=== PATIENT | female | born 1960 | race Caucasian/White ===

== ENCOUNTER → 2019-08-16 | Outpatient (CLI) | payer OTHER ==
[~2019-08-16] MED LIST: ALBU90OI6 INH; AZIT250 PO; METPRE4DP PO
== END | disposition home or self-care (01) ==
LOC: PLD 07:33 → LAB SHORT 07:33
DX: L72.0 Epidermal cyst (principal)
CPT/HCPCS: 88304

== ENCOUNTER → 2024-09-16 | Outpatient (CLI) | payer OTHER ==
[2024-09-16 09:31] LABS: BASOPHILS ABSOLUTE AUTO 0.03 K/mm3 (0.00-0.23); BASOPHILS PERCENT AUTO 0 % (0-2); EOSINOPHILS ABSOLUTE AUTO 0.14 K/mm3 (0.00-0.68); EOSINOPHILS PERCENT AUTO 2 % (0-6); Hematocrit 42.4 % (33.0-51.0); Hemoglobin 14.4 g/dL (11.5-16.0); IMMATURE GRAN ABSOLUTE AUTO 0.02 K/mm3 (0.00-0.10); IMMATURE GRAN PERCENT AUTO 0 % (0-1); LYMPHOCYTES ABSOLUTE AUTO 3.08 K/mm3 (0.84-5.20); LYMPHOCYTES PERCENT AUTO 36 % (21-46); MONOCYTES ABSOLUTE AUTO 0.77 K/mm3 (0.16-1.47); MONOCYTES PERCENT AUTO 9 % (4-13); Mean Corpuscular HGB 29.6 pg (26.0-34.0); Mean Corpuscular Volume 87 fL (80-100); Mean Platelet Volume 9.5 fL (9.1-12.4); NEUTROPHILS ABSOLUTE AUTO 4.49 K/mm3 (1.96-9.15); NEUTROPHILS PERCENT AUTO 53 % (41-73); Platelet Count 307 K/mm3 (150-400); RDW Coefficient Variation 14.2 % (11.7-14.2); RDW Standard Deviation 45.5 fL (35.1-46.3); Red Blood Cell Count 4.87 M/mm3 (3.80-5.20); White Blood Cell Count 8.53 K/mm3 (4.00-11.30)
[2024-09-16 09:54] LABS: Alanine Aminotransfer (ALT/SGP 29 U/L (12-78); Albumin, Blood 3.8 g/dL (3.4-5.0); Albumin/Globulin Ratio 0.9 (0.8-1.8); Alk Phos 73 U/L (50-136); Anion Gap 8 mmol/L (3-11); Aspartate Aminotrans (AST/SGOT 11 U/L (12-37); Bilirubin, Total 0.3 mg/dL (0.1-1.0); Blood Urea Nitrogen 14 mg/dL (8-24); Bun/Creatinine Ratio 22.1 (12.0-20.0); CHOL/HDL RATIO 4.4; CO2, Blood 26 mmol/L (21-32); Calcium, Blood 9.5 mg/dL (8.5-10.1); Chloride, Blood 106 mmol/L (98-108); Cholesterol 194 mg/dL (50-200); Creatinine, Blood 0.63 mg/dL (0.40-1.00); Globulin, Blood 4.1 g/dL (2.2-4.0); Glomerular Filtration Rate 100 (60-); Glucose, Blood 136 mg/dL (70-99); HDL Cholesterol 44 mg/dL (>39); LDL/HDL RATIO 2.4; Low Density Lipoprotein Chol 108 mg/dL (0-110); Potassium, Blood 4.3 mmol/L (3.5-5.5); Sodium, Blood 136 mmol/L (136-145); Total Protein, Blood 7.9 g/dL (6.4-8.2); Triglycerides 212 mg/dL (30-160); Very Low Density Lipoprot Chol 42 mg/dL (6-32)
== END ==
LOC: LAB 07:49 → LAB SHORT 07:49
PROVIDERS: Student in an Organized Health Care Education/Training Program
DX: Z13.6 Encounter for screening for cardiovascular disorders (principal); E11.9 Type 2 diabetes mellitus without complications; F43.10 Post-traumatic stress disorder, unspecified; M79.651 Pain in right thigh
CPT/HCPCS: 80053; 80061; 83036; 85025

== ENCOUNTER 2024-10-05 19:34 | Inpatient (IN) | payer OTHER ==
[~2024-10-05] VITALS: Ht 170.2 cm; Wt 87.2 kg
[2024-10-05 20:05] LABS: BASOPHILS ABSOLUTE AUTO 0.01 K/mm3 (0.00-0.23); BASOPHILS PERCENT AUTO 0 % (0-2); EOSINOPHILS ABSOLUTE AUTO 0.01 K/mm3 (0.00-0.68); EOSINOPHILS PERCENT AUTO 0 % (0-6); Hematocrit 39.7 % (33.0-51.0); Hemoglobin 13.6 g/dL (11.5-16.0); IMMATURE GRAN ABSOLUTE AUTO 0.05 K/mm3 (0.00-0.10); IMMATURE GRAN PERCENT AUTO 1 % (0-1); LYMPHOCYTES ABSOLUTE AUTO 1.19 K/mm3 (0.84-5.20); LYMPHOCYTES PERCENT AUTO 12 % (21-46); MONOCYTES ABSOLUTE AUTO 0.84 K/mm3 (0.16-1.47); MONOCYTES PERCENT AUTO 9 % (4-13); Mean Corpuscular HGB 29.1 pg (26.0-34.0); Mean Corpuscular HGB Conc 34.3 g/dL (31.5-36.5); Mean Corpuscular Volume 85 fL (80-100); NEUTROPHILS ABSOLUTE AUTO 7.81 K/mm3 (1.96-9.15); NEUTROPHILS PERCENT AUTO 79 % (41-73); Platelet Count 261 K/mm3 (150-400); RDW Coefficient Variation 14.1 % (11.7-14.2); RDW Standard Deviation 43.4 fL (35.1-46.3); Red Blood Cell Count 4.68 M/mm3 (3.80-5.20); White Blood Cell Count 9.91 K/mm3 (4.00-11.30)
[2024-10-05] MEDS ORDERED: Ipratropium Bromide INH 0.02% 0.5 mg/2.5ML Vial INH SCH (20:25)
[2024-10-05] MEDS ORDERED: Albuterol 2.5 MG/3 ML VIAL INH SCH (20:25)
[2024-10-05 20:31] LABS: Albumin, Blood 3.8 g/dL (3.4-5.0); Albumin/Globulin Ratio 0.9 (0.8-1.8); Bilirubin, Total 0.3 mg/dL (0.1-1.0); Bun/Creatinine Ratio 23.8 (12.0-20.0); Creatinine, Blood 0.42 mg/dL (0.40-1.00); Globulin, Blood 4.3 g/dL (2.2-4.0); Total Protein, Blood 8.1 g/dL (6.4-8.2)
[2024-10-05 20:40] LABS: Influenza B, PCR NEGATIVE (NEGATIVE); Resp Syncytial Virus, PCR NEGATIVE (NEGATIVE); SARS-Cov-2 (COVID-19) PCR, MMC NEGATIVE (NEGATIVE)
[2024-10-05 20:41] LABS: Influenza A, PCR POSITIVE (NEGATIVE)
[2024-10-05 20:58] LABS: Bicarbonate Venous 27.3 mmol/L (24.0-30.0)
[2024-10-05] MEDS ORDERED: NS 1,000 ML IV SCH ×2 (21:30→22:20)
[2024-10-05] MEDS ORDERED: Oseltamivir Phosphate 75 MG Cap PO ONE (21:45)
[2024-10-05] MEDS ORDERED: MethylPREDNISolone Sod Succ 125 MG Vial IV ONE (21:45)
[2024-10-05] MEDS ORDERED: Ipratropium/Albuterol SulF 2.5-0.5MG/3 ML Amp INH SCH (22:20)
[2024-10-05] MEDS ORDERED: Albuterol 2.5 MG/3 ML VIAL INH PRN (22:20)
[2024-10-05] MEDS ORDERED: Ondansetron HCl 2 MG / ML 2ML Vial IV PRN (22:20)
[2024-10-05] MEDS ORDERED: FLU VACC TS2024-25(6MOS UP)/PF 45 MCG/0.5 ML SYRINGE IM SCH (22:20)
[2024-10-05] MEDS ORDERED: LORazepam 2 MG/ML 1ML Injection IV PRN (22:20)
[2024-10-05] MEDS ORDERED: Azithromycin 500 MG in NS 250 ML IV SCH (22:35)
[2024-10-06] VITALS (23 sets, daily range): BP systolic 118–177; BP diastolic 56–95
[2024-10-06 00:49] LABS: PCO2 Venous 52.1 mmHg (38-42); pH Blood Venous 7.31 (7.34-7.37)
[2024-10-06 00:50] LABS: Bicarbonate Venous 23.4 mmol/L (24.0-30.0)
[2024-10-06 00:51] LABS: Base Excess Venous -0.3 mmol/L
[2024-10-06 06:20] LABS: BASOPHILS PERCENT AUTO 0 % (0-2); EOSINOPHILS PERCENT AUTO 0 % (0-6); Hematocrit 35.7 % (33.0-51.0); Hemoglobin 12.1 g/dL (11.5-16.0); IMMATURE GRAN ABSOLUTE AUTO 0.05 K/mm3 (0.00-0.10); IMMATURE GRAN PERCENT AUTO 1 % (0-1); LYMPHOCYTES ABSOLUTE AUTO 0.65 K/mm3 (0.84-5.20); LYMPHOCYTES PERCENT AUTO 7 % (21-46); MONOCYTES ABSOLUTE AUTO 0.15 K/mm3 (0.16-1.47); MONOCYTES PERCENT AUTO 2 % (4-13); Mean Corpuscular HGB 29.2 pg (26.0-34.0); Mean Corpuscular HGB Conc 33.9 g/dL (31.5-36.5); Mean Corpuscular Volume 86 fL (80-100); Mean Platelet Volume 8.7 fL (9.1-12.4); NEUTROPHILS ABSOLUTE AUTO 8.56 K/mm3 (1.96-9.15); NEUTROPHILS PERCENT AUTO 91 % (41-73); Platelet Count 227 K/mm3 (150-400); RDW Standard Deviation 44.4 fL (35.1-46.3); Red Blood Cell Count 4.15 M/mm3 (3.80-5.20); White Blood Cell Count 9.41 K/mm3 (4.00-11.30)
--- NOTE | 2024-10-06 06:26 | NUR ---
SHIFT SUMMARY PATIENT TO ICU FROM ER AT APPROX 2345. PATIENT ALERT AND ORIENTED X4. SP02 78% ON 4L VIA NC WHEN TRANSFERED OVER TO THE ICU BED, PATIENT WORK OF BREATHING INCREASED WITH ANY ACTIVITY. PLACED ON BIPAP 10/5, FI02, RR 27. WHEN OFF BIPAP ON 5-6L NC PATIENT UNABLE TO TOLERATE FOR MORE THAN A COUPLE MINUTES. LS COARSE T/O. HR ST 120s, BP HYPERTENSIVE AT TIMES, SYSTOLIC CURRENTLY 150. DENIES CP/PRESSURE. USING BEDPAN. REPOSITIONS INDEPENDENTLY. HAS RASH ON ABDOMEN, DEBBIE AREA, AND BUTTOCKS. CALL LIGHT IN REACH
[2024-10-06 06:36] LABS: Albumin, Blood 3.3 g/dL (3.4-5.0); Albumin/Globulin Ratio 0.8 (0.8-1.8); Bilirubin, Total 0.2 mg/dL (0.1-1.0); Calcium, Blood 8.8 mg/dL (8.5-10.1); Creatinine, Blood 0.4 mg/dL (0.40-1.00); Magnesium, Blood 2.2 mg/dL (1.6-2.4); Potassium, Blood 3.9 mmol/L (3.5-5.5); Total Protein, Blood 7.3 g/dL (6.4-8.2)
[2024-10-06] MEDS ORDERED: Enoxaparin 40 MG/0.4 ML SYR SC SCH (09:00)
[2024-10-06] MEDS ORDERED: Oseltamivir Phosphate 75 MG Cap PO SCH (09:00)
[2024-10-06] MEDS ORDERED: Insulin Regular 100 UNIT/ML 10ML Vial SC SCH (11:30)
--- NOTE | 2024-10-06 12:30 | NUR ---
ASSUMED CARE OF PATIENT AT APPROXIMATELY 0700. REPORT RECEIVED FROM CATHY CHAPPELL AND AMBERLY CHAPPELL. PT AWAKE IN BED, INTERACTING WITH STAFF APPROPRIATELY DURING BEDSIDE REPORT. ON CONTINUOUS CARDIAC MONITORING SHOWING SR, BP STABLE. ON BIPAP WITH SETTINGS OF 10/5 AND 40%. O2 SATURATION 95%. NO ACUTE NEEDS IDENTIFED AT THIS TIME. SEE SHIFT ASSESSMENT FOR FULL DETAILS.
[2024-10-06] MEDS ORDERED: Nystatin 100,000 Unit/GM CREAM 15 GM TOP PRN (13:00)
[2024-10-06] MEDS ORDERED: Nystatin 100,000 Unit/ML Susp 5 ML UDC PO SCH (14:55)
[2024-10-06] MEDS ORDERED: MethylPREDNISolone Sod Succ 125 MG Vial IV SCH ×2 (16:00)
--- NOTE | 2024-10-06 17:58 | NUR ---
SHIFT SUMMARY PT REMAINED ALERT AND ORIENTED X 4 T/O ENTIRETY OF SHIFT. ABLE TO FOLLOW COMMANDS, MAKE PURPOSEFUL MOVEMENTS, AND MAKE NEEDS KNOWN. AFEBRILE AND DENIES PAIN. CONTINUOUS CARDIAC MONITORING SHOWED SR-ST WITH HR IN 80'S-100'S. SWITCHED TO 4LPM O2 VIA NC AT 0850, WHICH PT REMAINED ON THROUGHOUT. O2 SATURATIONS > 90%. PRODUCTIVE COUGH CONTINUES. AMBULATES TO [facility] WITH SBA FOR LINE GUIDANCE. NO BM THIS SHIFT. DENIES N/V. CLEAR LIQUID DIET FOR LUNCH, ADVANCED TO CONSISTENT CARBS PER EARLIER CONVERSATION WITH DR. HIGUERA TO ADVANCE TOLERATED. OBTAINED PHOTOS OF RASH TO LOWER BODY, NYSTATIN ORDERED PER DR. HIGUERA. NS INFUSING AT 100 mL/HR. SON GABRIELLE AT BEDSIDE EARLIER, UPDATED ON PLAN OF CARE. WILL CONTINUE TO MONITOR AND REPORT TO ONCOMING RN.
--- NOTE | 2024-10-06 21:00 | NUR ---
ASSUMPTION OF CARE PT LYING IN BED, ALERT AND ORIENTED. BIPAP ON, 06/19 35%, SATURATION 94%. SINUS RHYTHM AND TACHYCARDIC IN THE 100'S. SBP 130'S. NO CHEST PAIN OR SOB. NO AB PAIN, N/V. NS AT 100ML/HR. PT HAS CALL LIGHT.
[2024-10-07] VITALS (11 sets, daily range): BP systolic 109–173; BP diastolic 63–98
--- NOTE | 2024-10-07 00:16 | NUR ---
SHORTLY AFTER DUONEB TREATMENT, PT QTC ALARM STARTED GOING OFF FOR VALUES OF 60-70. ACCORDING TO MY MEASUREMENTS, THE VALUE REMAINS JUST BELOW 50. ALARM SETTINGS CHANGED TO UPPER LIMIT OF 70
[2024-10-07 03:56] LABS: BASOPHILS ABSOLUTE AUTO 0.01 K/mm3 (0.00-0.23); BASOPHILS PERCENT AUTO 0 % (0-2); EOSINOPHILS PERCENT AUTO 0 % (0-6); Hematocrit 35.4 % (33.0-51.0); Hemoglobin 11.8 g/dL (11.5-16.0); IMMATURE GRAN ABSOLUTE AUTO 0.05 K/mm3 (0.00-0.10); IMMATURE GRAN PERCENT AUTO 1 % (0-1); LYMPHOCYTES ABSOLUTE AUTO 1.14 K/mm3 (0.84-5.20); LYMPHOCYTES PERCENT AUTO 11 % (21-46); MONOCYTES ABSOLUTE AUTO 0.57 K/mm3 (0.16-1.47); MONOCYTES PERCENT AUTO 5 % (4-13); Mean Corpuscular HGB 28.9 pg (26.0-34.0); Mean Corpuscular HGB Conc 33.3 g/dL (31.5-36.5); Mean Corpuscular Volume 87 fL (80-100); Mean Platelet Volume 9.1 fL (9.1-12.4); NEUTROPHILS ABSOLUTE AUTO 9.03 K/mm3 (1.96-9.15); NEUTROPHILS PERCENT AUTO 84 % (41-73); Platelet Count 243 K/mm3 (150-400); RDW Coefficient Variation 14.2 % (11.7-14.2); RDW Standard Deviation 45.5 fL (35.1-46.3); Red Blood Cell Count 4.08 M/mm3 (3.80-5.20)
[2024-10-07 04:16] LABS: Bun/Creatinine Ratio 28.2 (12.0-20.0); Calcium, Blood 8.5 mg/dL (8.5-10.1); Creatinine, Blood 0.5 mg/dL (0.40-1.00); Potassium, Blood 4.2 mmol/L (3.5-5.5)
--- NOTE | 2024-10-07 07:35 | NUR ---
PT LYING IN BED IN NO APPARENT DISTRESS. PT SLEEPING BUT AWAKES TO VOICE AND IS ALERT AND ORIENTED TO ALL. PT ON BIPAP MOST OF NIGHT 10/5 35% BUT ON 6LNC AND SAT WELL DUE TO DRINKING COFFEE. NO CHEST PAIN OR SOB. ONE EPISODE OF SOB FOLLOWING C SBA JOURNEY. SINUS RHYTHM TACHY TO NORMAL. BP STABLE TO ELEVATED. NO AB PAIN. NS AT 100 ML/HR. PT GIVEN ONE 1MG DOSE OF ATIVAN FOR BIPAP RELATED ANXIETY. PT HAS CALL LIGHT. REPORT GIVEN TO ONCOMING NURSE.
[2024-10-07] MEDS ORDERED: dilTIAZem HCL 60 MG CAP.SR PO SCH (09:00)
--- NOTE | 2024-10-07 18:06 | NUR ---
SUMMARY PT A/O X4. OOB TO BSC SEVERAL TIMES TODAY. GETS SOB AND SPO2 DROPS TO 87% ON 5L NC. PT RECOVERS QUICKLY WITH REST. BELLA STARTED TODAY FOR HR, HR NOW IN THE 90'S. PRODUCTIVE COUGH WITH ABURTO SPUTUM. PT STATES SHE FEELS BETTER THAN SHE DID ON ADMIT. NO ACUTE CHANGES THIS SHIFT. USING CALL LIGHT APPROPRIATELY.
[2024-10-08] VITALS: BP 136/74
[2024-10-08 02:14] VITALS: BP 154/79
--- NOTE | 2024-10-08 02:28 | NUR ---
PT HAD NO SIGNIFICANT CHANGES THROUGHOUT SHIFT. REMAINED ON OXYGEN, EITHER NC AT 5LPM OR BIPAP WHILE SLEEPING. SINUS RHYTHM ON AERODYNAMICS ENGINEER, NORMOTENSIVE. PT WAS AFEBRILE. SHE WAS USING CALL LIGHT APPROPRIATELY AND TRANSFERRING TO THE TOILET IF NEEDED. SHE DID EXHIBIT INCREASED WOB WITH EXERTION BUT RECOVERS WELL. I GAVE REPORT TO MISTI COCHRAN. PT WAS TAKEN TO [facility] APPROXIMATELY 0210.
--- NOTE | 2024-10-08 02:33 | NUR ---
TRANSFER PATIENT TRANSFERRED TO PCU 12 MEDICAL TELE STATUS, FROM ICU 05. PATIENT ABLE TO STAND AND TRANSFER TO PCU BED FROM WHEELCHAIR. ALERT, ORIENTED x4. PLACED ON TELE, SR 90s. PATIENT ON 5L NC WHILE AWAKE, BIPAP AT BEDSIDE WHILE SLEEPING. PATIENT WITH PRODUCTIVE COUGH. SPO2 LOW 90s. PATIENT REQUESTING WATER AND COFFEE. EDUCATED GLOVE CUFFER LIGHT USE AND ORIENTED TO PCU ROOM. DENIES FURTHER NEEDS AT THIS TIME.
[2024-10-08 04:55] LABS: BASOPHILS ABSOLUTE AUTO 0.02 K/mm3 (0.00-0.23); BASOPHILS PERCENT AUTO 0 % (0-2); EOSINOPHILS PERCENT AUTO 0 % (0-6); Hemoglobin 12.3 g/dL (11.5-16.0); IMMATURE GRAN ABSOLUTE AUTO 0.15 K/mm3 (0.00-0.10); IMMATURE GRAN PERCENT AUTO 1 % (0-1); LYMPHOCYTES PERCENT AUTO 9 % (21-46); MONOCYTES ABSOLUTE AUTO 0.34 K/mm3 (0.16-1.47); MONOCYTES PERCENT AUTO 3 % (4-13); Mean Corpuscular HGB 29.8 pg (26.0-34.0); Mean Corpuscular HGB Conc 34.2 g/dL (31.5-36.5); Mean Corpuscular Volume 87 fL (80-100); NEUTROPHILS ABSOLUTE AUTO 11.23 K/mm3 (1.96-9.15); NEUTROPHILS PERCENT AUTO 87 % (41-73); Platelet Count 278 K/mm3 (150-400); RDW Coefficient Variation 14.2 % (11.7-14.2); RDW Standard Deviation 45.6 fL (35.1-46.3); Red Blood Cell Count 4.13 M/mm3 (3.80-5.20); White Blood Cell Count 12.94 K/mm3 (4.00-11.30)
[2024-10-08 05:26] LABS: Bun/Creatinine Ratio 31.6 (12.0-20.0); Creatinine, Blood 0.51 mg/dL (0.40-1.00); Potassium, Blood 4.2 mmol/L (3.5-5.5)
--- NOTE | 2024-10-08 06:05 | NUR ---
SHIFT SUMMARY PATIENT MEDICAL STATUS. ALERT AND ORIENTED x4, USES CALL LIGHT APPROPRIATELY. ALTERNATING BETWEEN 5L NC AND BIPAP, SPO2 LOW 90s. ON TELE, SR. BP STABLE. STANDBY ASSIST TO BEDSIDE COMMODE, ADEQUATE OUTPUT. NO OTHER CHANGES SINCE TRANSFER. WILL REPORT TO DAY SHIFT RN.
[2024-10-08 08:12] VITALS: BP 155/84
[2024-10-08] MEDS ORDERED: Fluconazole 100 MG Tab PO SCH (14:00)
[2024-10-08 15:18] VITALS: BP 83/60
[2024-10-08 16:55] VITALS: BP 146/68
--- NOTE | 2024-10-08 17:28 | NUR ---
SHIFT SUMMARY: PT ALERT AND ORIENTED X4, ABLE TO FOLLOW COMMANDS AND MAKE NEEDS KNOWN. COOPERATIVE WITH CARE. STRENGTH EQUAL BILATERALLY. PEERLA. BP AND HR STABLE. AFEBRILE. SPO2 >90% ON 5L NC. LUNG SOUNDS DIM IN BASES. RESPIRATIONS EVEN AND UNLABARED AT REST. PT WITH NON PRODUCTIVE COUGH. PULSES STRONG AND EQUAL THROUGHOUT. ABD SOFT, NON TENDER, BOWEL SOUNDS +. PT IND IN ROOM, ABLE TO WALK TO AND FROM BATHROOM. NO BM. DENIES PAIN THROUGHOUT. POSSIBLE DISCHARGE IN AM, PENDING HOME O2 EVAL. PT SON AT BEDSIDE THIS AFTERNOON, UPDATED ON PT PLAN OF CARE. BED IN LOW, CALL LIGHT IN REACH, WILL REPORT TO ONCOMING RN.
[2024-10-08] MEDS ORDERED: Nystatin 100,000 Unit/GM Ointment 15 GM TOP SCH (18:00)
[2024-10-08 19:25] VITALS: BP 146/86; BP 170/85
[2024-10-08] MEDS ORDERED: dilTIAZem HCL 60 MG CAP.SR PO SCH (21:00)
[2024-10-08] MEDS ORDERED: MethylPREDNISolone Sod Succ 125 MG Vial IV SCH (21:00)
[2024-10-09 04:27] VITALS: BP 158/90
[2024-10-09 05:02] LABS: Bun/Creatinine Ratio 34.6 (12.0-20.0); Calcium, Blood 8.9 mg/dL (8.5-10.1); Creatinine, Blood 0.52 mg/dL (0.40-1.00); Potassium, Blood 4.3 mmol/L (3.5-5.5)
--- NOTE | 2024-10-09 06:06 | NUR ---
SHIFT SUMMARY PATIENT MEDICAL WITH TELE STATUS PATIENT ALERT, ORIENTED x4, USING CALL LIGHT APPROPRIATELY. PATIENT ON 5L NC WITH SPO2 LOW TO MID 90s. PATIENT USING FLUTTER VALVE T/O THE SHIFT, STATES SHE IS ABLE TO COUGH SPUTUM UP. PATIENT IS REQUESTING HOME O2 EVAL PRIOR TO DISCHARGE D/T CURRENT OXYGEN DEMANDS. ON TELE, SINUS RHYTHM 90s. PATIENT AMBULATING T/O ROOM INDEPENDENTLY. USING BEDSIDE COMMODE, ADEQUATE OUTPUT. PATIENT HAD BM. NO OTHER CHANGES, WILL REPORT TO DAY SHIFT RN. PATIENT VERY CONCERNED AND ANXIOUS ABOUT POSSIBLY DISCHARGING TODAY. PATIENT STATING SHE DOES NOT HAVE ANYONE AT HOME THAT CAN ASSIST HER WITH HER CAR BEING PARKED IN ER PARKING LOT AND DOES NOT KNOW WHO CAN PICK HER UP UPON DISCHARGE OR HOW SHE WILL GET HOME. THIS RN EDUCATED THAT PATIENT WILL BE DISCHARGED WITH APPROPRIATE RESOURCES THAT ARE AVAILABLE AND TO AWAIT SEEING THE DOCTOR ON DAY SHIFT. PATIENT AGREEABLE.
[2024-10-09 07:21] VITALS: BP 143/96
[2024-10-09] MEDS ORDERED: ALBU2.5V5 INH (09:48)
[2024-10-09] MEDS ORDERED: Diflucan100 MG PO (09:49)
[2024-10-09] MEDS ORDERED: DILT60ER PO (09:49)
[2024-10-09] MEDS ORDERED: METF500 PO (09:50)
[2024-10-09] MEDS ORDERED: PRED20 PO (09:53)
[2024-10-09] MEDS ORDERED: OSEL75CA PO (09:54)
[2024-10-09] MEDS ORDERED: SYMBICORT 160-4.6 GM INH (11:12)
[2024-10-09 14:08] VITALS: BP 161/91
--- NOTE | 2024-10-09 14:45 | NUR ---
DISCAHRGE: PT D/C PCU 12 @6208 VIA WHEELCHAIR. DISCHARGE INSTRUCTIONS AND PROVIDED PROVIDED. ALL BELONGINGS WITH PT.
== END 2024-10-09 14:21 | disposition home or self-care (01) | DRG 193 ==
LOC: ER 19:34 → ERHOLD 22:14 → ICUE 22:14 → PCU 10-08 02:11
PROVIDERS: Internal Medicine; Nurse Practitioner Acute Care; Student in an Organized Health Care Education/Training Program; ADMIT Internal Medicine
PROC: 5A09457 Assistance with Respiratory Ventilation, 24-96 Consecutive Hours, Continuous Positive Airway Pressure (ICD-10-PCS; principal; 2024-10-05)
DX: J10.1 Influenza due to other identified influenza virus with other respiratory manifestations (principal); J96.01 Acute respiratory failure with hypoxia; B37.89 Other sites of candidiasis; E87.1 Hypo-osmolality and hyponatremia; J44.1 Chronic obstructive pulmonary disease with (acute) exacerbation; M19.90 Unspecified osteoarthritis, unspecified site; E11.9 Type 2 diabetes mellitus without complications; I10 Essential (primary) hypertension; Z87.891 Personal history of nicotine dependence; Z99.81 Dependence on supplemental oxygen; Z79.899 Other long term (current) drug therapy
CPT/HCPCS: 0241U; 36415; 71046; 80048; 80053; 82803; 82947; 83735; 84484; 85025; 93005; 93010; 94640; 94644; 94660; 94664; 94761; 94762; 96360; 99285-25; A9270; J0456; J1650; J1815; J2060; J2919; J7030; J7050

== ENCOUNTER → 2024-11-03 | Outpatient (CLI) | payer OTHER ==
[~2024-11-03] MED LIST changes: +ALBU2.5V5 INH; +DILT60ER PO; +Diflucan100 MG PO; +METF500 PO; +OSEL75CA PO; +PRED20 PO; +SYMBICORT 160-4.6 GM INH
== END ==
LOC: LAB SHORT 09:24 → LAB 09:24
DX: L72.3 Sebaceous cyst (principal); L08.9 Local infection of the skin and subcutaneous tissue, unspecified
CPT/HCPCS: 87070; 87075; 87077; 87186; 87205

== ENCOUNTER → 2025-05-17 | Outpatient (CLI) | payer OTHER | END | disposition home or self-care (01) | LOC: LAB 10:12 → LAB SHORT 10:12 | DX: L02.31 Cutaneous abscess of buttock (principal) | CPT/HCPCS: 87070; 87075; 87205 ==